=== PATIENT | female | born 1995 | race Caucasian/White ===

== ENCOUNTER 2019-08-16 00:38 | Emergency (ER) | payer BC ==
[~2019-08-16] VITALS: Ht 157.5 cm; Wt 70.8 kg
[2019-08-16 00:40] VITALS: BP_SYST 136; BP_SYST 139
--- NOTE | 2019-08-16 00:40 | NUR ---
Patient triaged and placed in waiting room. VSS and patient appears in no acute distress at this time. Accompanied by MOTHER, awaiting available bed, and MD notified of need for MSE.
--- NOTE | 2019-08-16 00:44 | NUR ---
Note yessenia in EDM - 08/16/19 at 0147 by [email or web address] Patient to ER bed 5 to selvin for evaluation. Side rails up. Report given to Ana TURPIN.
--- NOTE | 2019-08-16 01:47 | NUR ---
Patient to ER bed 7 to gown for evaluation. Side rails up.
--- NOTE | 2019-08-16 02:02 | NUR ---
ER at bedside examining patient.
[2019-08-16] MEDS ORDERED: DIPHENHYDRAMINE INJ 50 MG/ML VIAL IM ONE (02:15)
[2019-08-16] MEDS ORDERED: IBUPROFEN 800 MG TABLET PO ONE (02:15)
--- NOTE | 2019-08-16 02:25 | NUR ---
Nasal swab for influenza done at the bedside.Pt tolerated well.
--- NOTE | 2019-08-16 02:25 | NUR ---
Urine HCG done, results negative.
--- NOTE | 2019-08-16 02:31 | NUR ---
Medicated pt w/ mother at the bedside.Pt tolerated well.
--- NOTE | 2019-08-16 03:19 | NUR ---
Patient given written and verbal discharge instructions and verbalizes understanding. ER MD discussed with patient the results and treatment provided. Patient in stable condition. ID arm band removed. Rx of Promethazine,Sudafed,Azithromycin,Flonase given. Patient educated on pain management and to follow up with PMD. Pain Scale 2/10. Opportunity for questions provided and answered. Medication side effect fact sheet provided.
--- NOTE | 2019-08-16 03:19 | NUR ---
PT STS FEELING BETTER.
[2019-08-16 03:22] VITALS: BP_SYST 129
== END 2019-08-16 03:22 | disposition home or self-care (01) ==
LOC: SED 00:38
DX: J32.9 Chronic sinusitis, unspecified (principal); J02.9 Acute pharyngitis, unspecified; R03.0 Elevated blood-pressure reading, without diagnosis of hypertension
CPT/HCPCS: 81025; 86710; 96372; 99283; J1200; 36415